=== PATIENT | male | born 1940 ===

== ENCOUNTER 2017-06-01 11:46 | Emergency (ER) | payer MEDICARE, MEDICAID ==
--- NOTE | 2017-06-01 12:00 | ED PDOC ---
Arrival/HPI - General Chief Complaint: Weakness/Neurological Deficit Time Seen by Provider: 06/01/17 11:53 Historian: Family (Son), EMS EM Caveat: Altered Mental Status - Critical Care Critical Care Minutes: 75 minutes - History of Present Illness Time/Duration: Prior to Arrival Symptom Onset: Sudden Symptom Course: Unchanged Severity Level: Severe Associated Symptoms (Text): 06/01/17 11:58 Son reports that the patient got up this morning and was feeling fine. He was having coffee and breakfast with his at 11 AM today. He got up to use the bathroom and did not return from the bathroom for 20 or 25 minutes. The then went to find him and found him on the floor in the bathroom with it dense left hemiparesis. Patient was initially seen on the stretcher and a code stroke was called and he was brought emergently to CT scan. The son reports 3 medications 1 for hypertension 1 for diabetes and one for hyperlipidemia. The patient is able to follow commands. I spoke with the stroke neurologist , and she is coming to the emergency department to evaluate the patient. Past Medical History - Infectious Disease Hx of Infectious Diseases: None - Endocrine/Metabolic Hx Diabetes Mellitus Type 2: Yes - Genitourinary/Gynecological Hx Bladder Stone: Yes - Psychiatric Hx Psychophysiologic Disorder: No Hx Anxiety: No Hx Bipolar Disorder: No Hx Depression: No Hx Emotional Abuse: No Hx Hallucinations: No Hx Panic Disorder: No Hx Post Traumatic Stress Disorder: No Hx Psychosis: No Hx Physical Abuse: No Hx Schizophrenia: No Hx Sexual Abuse: No Hx Substance Use: No - Surgical History Other/Comment: Bladder surgery - Anesthesia Hx Anesthesia: Yes Hx Anesthesia Reactions: No Hx Malignant Hyperthermia: No Family/Social History - Physician Review Nursing Documentation Reviewed: Yes Family/Social History: Unknown Family HX Smoking Status: Never Smoked Hx Alcohol Use: No Hx Substance Use: No Allergies/Home Meds Allergies/Adverse Reactions: Allergies No Known Allergies Allergy (Verified 06/01/17 12:03) Home Medications: Home Meds Medication Instructions Recorded Confirmed Ibuprofen [Advil] 200 mg PO PRN PRN 06/20/15 06/01/17 metFORMIN [glucOPHAGE] 1,000 mg PO BID 06/20/15 06/01/17 Aspirin [Ecotrin] 81 mg PO DAILY 06/01/17 06/01/17 Atorvastatin [Lipitor] 40 mg PO DAILY 06/01/17 06/01/17 Canagliflozin [Invokana] 100 mg PO DAILY 06/01/17 06/01/17 Enalapril Maleate [Vasotec] 10 mg PO DAILY 06/01/17 06/01/17 Pantoprazole [Protonix EC Tab] 40 mg PO DAILY 06/01/17 06/01/17 Ranolazine [Ranexa] 500 mg PO DAILY 06/01/17 06/01/17 Ticagrelor [Brilinta] 90 mg PO DAILY 06/01/17 06/01/17 Review of Systems - Review of Systems Systems not reviewed;Unavailable: Altered Mental Status Physical Exam Vital Signs Temp Pulse Resp BP Pulse Ox 06/01/17 15:48 98 H 18 161/96 H 98 06/01/17 15:33 101 H 18 183/99 H 98 06/01/17 15:18 89 18 188/101 H 98 06/01/17 15:03 97 H 18 176/111 H 98 06/01/17 14:48 95 H 18 164/120 H 98 06/01/17 14:33 85 18 178/110 H 98 06/01/17 14:18 88 18 173/116 H 96 06/01/17 14:03 74 18 178/111 H 98 06/01/17 13:48 78 18 181/97 H 95 06/01/17 13:46 87 171/124 H 06/01/17 13:38 79 18 171/124 H 98 06/01/17 12:52 102 H 155/80 H 06/01/17 12:47 97 H 18 155/80 H 96 06/01/17 11:56 97.5 F L 104 H 19 161/122 H 97 Temperature: Afebrile Blood Pressure: Hypertensive Pulse: Tachycardic Respiratory Rate: Normal Appearance: Positive for: Non-Toxic, Comfortable Pain Distress: None Mental Status: Positive for: Lethargic Finger Stick Blood Glucose: 130 - Systems Exam Head: Present: Atraumatic, Normocephalic Pupils: Present: PERRL Extroacular Muscles: Present: EOMI Conjunctiva: Present: Normal Mouth: Present: Moist Mucous Membranes Pharnyx: No: ERYTHEMA, EXUDATE, TONSILS ENLARGED Respiratory/Chest: Present: Clear to Auscultation, Good Air Exchange, Decreased Breath Sounds. No: Respiratory Distress, Accessory Muscle Use Cardiovascular: Present: Irregular Rhythm, Tachycardic Abdomen: Present: Normal Bowel Sounds. No: Tenderness, Distention, Peritoneal Signs, Rebound, Guarding Upper Extremity: Present: Normal Inspection. No: Cyanosis, Edema Lower Extremity: Present: Normal Inspection. No: Edema Neurological: Present: Other (Dense left upper and lower hemiparesis). No: Speech Normal, Motor Func Grossly Intact, Normal Sensory Function, Normal Cerebellar Funct, Norm Deep Tendon Reflexes, Gait Normal, Memory Normal Skin: Present: Warm, Dry, Normal Color. No: Rashes Medical Decision Making ED Course and Treatment: 06/01/17 12:14 I spoke with the radiologist Dr. Davis who read the code stroke CT scan as no acute findings only old changes. 06/01/17 12:15 EKG shows atrial fibrillation rate approximately [address] depressions laterally and in no acute changes. 06/01/17 12:15 Son reports that approximately one year ago the patient had a TIA with no subsequent sequela. He was seen at another hospital at that time. He was started on aspirin and brilinta by a shelter monitor at that time. 06/01/17 12:45 Call placed to the neuro interventionalist, waiting for to arrive. 06/01/17 12:57 called and reviewed the CT scan. She is on her way from [facility]. She does not want TPA secondary to the patient's brilinta and aspirin. 06/01/17 13:31 called again and will be here in 5 minutes. She is now requesting that the patient be prepped for TPA. 06/01/17 13:41 is here now and is requesting TPA be mixed. 06/01/17 14:09 Discussed with , who accepts to ICU. 06/01/17 14:12 Hospitalist accepts admission 06/01/17 14:56 Spoke with the neuro interventionalist [phone], who will review scan and CTA and call back 06/01/17 15:28 called back after reviewing the patient's CT scan and CTA and wants the patient transferred to [facility] [address] [id number]. [phone]. 06/01/17 15:36 I spoke with Otoniel at [facility] ambulance service and with [phone] at [facility] ED. Patient will go to the emergency department and from the emergency department to their IR suite. - Lab Interpretations Lab Results: 06/01/17 12:05 06/01/17 12:05 Lab Results 06/01/17 15:05: Blood Type Confirm AB POSITIVE 06/01/17 12:05: Sodium 139, Potassium 4.2, Chloride 102, Carbon Dioxide 25, Anion Gap 17, BUN 20, Creatinine 0.9, Est GFR ( Amer) > 60, Est GFR (Non- Af Amer) > 60, Random Glucose 163 H, Calcium 10.2, Total Bilirubin 0.6, AST 31, ALT 27, Alkaline Phosphatase 62, Troponin I < 0.01, Total Protein 8.4 H, Albumin 4.8, Globulin 3.6, Albumin/Globulin Ratio 1.3, Triglycerides 161 H, Cholesterol 176, LDL Cholesterol Direct 91, HDL Cholesterol 61 H 06/01/17 12:05: PT 10.8, INR 0.94, APTT 29.5 06/01/17 12:05: WBC 7.6, RBC 4.46, Hgb 13.5 L, Hct 40.5 L, MCV 90.8, MCH 30.3, MCHC 33.3, RDW 13.2, Plt Count 211, MPV 10.9, Gran % 48.9 L, Lymph % (Auto) 37.9 H, [place] % (Auto) 8.6 H, Eos % (Auto) 4.3, Baso % (Auto) 0.3, Gran # 3.72, Lymph # 2.9, [place] # 0.7 H, Eos # 0.3, Baso # 0.02 06/01/17 12:00: Blood Type AB POSITIVE, Antibody Screen Negative, BBK History Checked No verified bt - RAD Interpretation Radiology Orders: 06/01/17 11:49 HEAD W/O (CODE STROKE) [CT] Stat 06/01/17 11:56 CHEST PORTABLE [RAD] Stat 06/01/17 12:43 ANGIOGRAPHY HEAD [CT] Stat 06/02/17 05:00 MRA HEAD WITHOUT CONTRAST [MRI] Routine 06/02/17 06:00 BRAIN WITHOUT CONTRAST [MRI] Routine - Medication Orders Current Medication Orders: Sodium Chloride (Sodium Chloride 0.9%) 1,000 mls @ 0 mls/hr IV .Q0M RUBÉN PRN Reason: Per Protocol Insulin Human Lispro (Humalog Med) 0 units SC ACHS RUBÉN PRN Reason: Protocol Labetalol HCl (Trandate) 10 mg IV Q6 PRN PRN Reason: Other Discontinued Medications Alteplase, Recombinant (Activase 100 Mg Inj) 5.5 mg IV ONCE ONE PRN Reason: Protocol Stop: 06/01/17 13:52 Last Admin: 06/01/17 14:13 Dose: 5.5 mg eMAR Start Stop Document 06/01/17 14:13 EWO (Rec: 06/01/17 14:13 [id number]) Intravenous Solution Start Date 06/01/17 Start Time 14:04 End Date 06/01/17 End time 14:06 Total Infusion Time 2 Alteplase, Recombinant (Activase 100 Mg Inj) 49.3 mg IV ONCE ONE PRN Reason: Protocol Stop: 06/01/17 14:01 Last Admin: 06/01/17 14:08 Dose: 49.3 mg eMAR Start Stop Document 06/01/17 14:08 EWO (Rec: 06/01/17 14:49 [id number]) Intravenous Solution Start Date 06/01/17 Start Time 14:08 End Date 06/01/17 End time 15:08 Total Infusion Time 60 Metoprolol Tartrate (Lopressor) 5 mg IVP STAT STA Stop: 06/01/17 12:45 Last Admin: 06/01/17 12:52 Dose: 5 mg IVP Administration Document 06/01/17 12:52 EW (Rec: 06/01/17 12:53 [id number]) Charges for Administration # of IVP Administrations 1 MAR Pulse and Blood Pressure Document 06/01/17 12:52 EW (Rec: 06/01/17 12:53 [id number]) Pulse Pulse Rate (60-90 beats/min) 102 Blood Pressure Blood Pressure (100/60-150/90 mm Hg) 155/80 Metoprolol Tartrate (Lopressor) 5 mg IVP ONCE ONE Stop: 06/01/17 13:44 Last Admin: 06/01/17 13:46 Dose: 5 mg IVP Administration Document 06/01/17 13:46 [facility] (Rec: 06/01/17 13:46 [id number]) Charges for Administration # of IVP Administrations 2 MAR Pulse and Blood Pressure Document 06/01/17 13:46 [facility] (Rec: 06/01/17 13:46 [facility]-[id number]) Pulse Pulse Rate (60-90 beats/min) 87 Blood Pressure Blood Pressure (100/60-150/90 mm Hg) 171/124 NIHSS Scale ([place]) Time Performed: 12:09 - How Severe is the Stoke Baseline Level of Consciousness: 1=Drowsy LOC to Questions: 1=One correct LOC to commands: 1=Obeys one correctly Best Gaze: 2=Forced deviation Visual: 0=No visual loss Facial: 1=Minor asymmetry Motor Arm - Left: 4=No movement Motor Arm - Right: 0=No drift Motor Leg - Left: 4=No movement Motor Leg - Right: 0=No drift Limb Ataxia: 0=Absent Sensory: 1=Mild to moderate loss Best Language: 1=Mild to moderate aphasia Dysarthia: 1=Mild to moderate slurring Extinction & Inattention (Neglect): 1=Partial neglect (mild william-attention) Score: 18 Risk Level: Mod/Sev Stroke Risk Disposition/Present on Arrival - Present on Arrival Any Indicators Present on Arrival: No History of DVT/PE: No History of Uncontrolled Diabetes: No Urinary Catheter: No History of Decub. Ulcer: No History Surgical Site Infection Following: None - Disposition Have Diagnosis and Disposition been Completed?: Yes Diagnosis: Cerebrovascular accident, Atrial fibrillation, Hypertension Disposition: Trans to Other Acute Care Hosp Disposition Time: 14:12 Patient Plan: Transfer To Condition: CRITICAL Referrals: Vincenzo Henriquez [Primary Care Provider] - Follow up with primary
[2017-06-01 12:10] VITALS: BMI 18.4
--- NOTE | 2017-06-01 12:11 | CT ---
PROCEDURE: CT HEAD WITHOUT CONTRAST. HISTORY: weakness COMPARISON: None available. TECHNIQUE: Axial computed tomography images were obtained through the head/brain without intravenous contrast. Radiation dose: Total exam DLP = 942 mGy-cm. This CT exam was performed using one or more of the following dose reduction techniques: Automated exposure control, adjustment of the mA and/or kV according to patient size, and/or use of iterative reconstruction technique. FINDINGS: HEMORRHAGE: No intracranial hemorrhage. BRAIN: No mass effect or edema. Chronic infarcts with well-defined encephalomalacia can be seen in the right occipital lobe and in the left posterior frontal lobe. No evidence of acute infarct or hemorrhage. Findings were discussed with Dr. Suarez at 12:05 p.m. VENTRICLES: Unremarkable. No hydrocephalus. CALVARIUM: Unremarkable. PARANASAL SINUSES: Unremarkable as visualized. No significant inflammatory changes. MASTOID AIR CELLS: Unremarkable as visualized. No inflammatory changes. OTHER FINDINGS: None. IMPRESSION: No acute intracranial findings
[2017-06-01 12:22] LABS: BASO # 0.02 K/mm3 (0.0-2.0); BASO % 0.3 % (0.0-3.0); EOS # 0.3 (0.0-0.7); EOS % 4.3 % (1.5-5.0); GRAN # 3.72 (1.4-6.5); GRAN % 48.9 % (50.0-68.0); HEMOGLOBIN 13.5 g/dL (14.0-18.0); LYMPH # 2.9 (1.2-3.4); LYMPH % 37.9 % (22.0-35.0); MEAN CELL VOLUME 90.8 fl (80.0-105.0); MEAN CORPUSCULAR HEMOGLOBIN 30.3 pg (25.0-35.0); MEAN CORPUSCULAR HGB CONC 33.3 g/dl (31.0-37.0); MEAN PLATELET VOLUME 10.9 fl (7.0-11.0); MONO # 0.7 (0.1-0.6); MONO % 8.6 % (1.0-6.0); RBC 4.46 10^6/uL (3.5-6.1); RED CELL DISTRIBUTION WIDTH 13.2 % (11.5-14.5); WHITE BLOOD COUNT 7.6 10^3/ul (4.5-11.0)
[2017-06-01 12:30] LABS: INR 0.94 (0.93-1.08); PARTIAL THROMBOPLASTIN TIME 29.5 Seconds (25.1-36.5); PROTHROMBIN TIME 10.8 SECONDS (9.4-12.5)
--- NOTE | 2017-06-01 12:36 | RAD ---
HISTORY: cva COMPARISON: No prior. FINDINGS: LUNGS: No active pulmonary disease. PLEURA: No significant pleural effusion identified, no pneumothorax apparent. CARDIOVASCULAR: Mild cardiomegaly OSSEOUS STRUCTURES: No significant abnormalities. VISUALIZED UPPER ABDOMEN: Normal. OTHER FINDINGS: None. IMPRESSION: No active disease.
[2017-06-01 12:40] LABS: LDL CHOLESTEROL 91 mg/dL (0-129)
[2017-06-01 12:42] LABS: TROPONIN I < 0.01 ng/mL
[2017-06-01 12:43] LABS: ALB/GLOB RATIO 1.3 (1.1-1.8); ALBUMIN 4.8 g/dL (3.0-4.8); ALT/SGPT 27 U/L (7-56); AST/SGOT 31 U/L (17-59); BLOOD UREA NITROGEN 20 mg/dL (7-21); CALCIUM 10.2 mg/dL (8.4-10.5); GFR AFRICAN-AMERICAN > 60; GFR NON-AFRICAN AMERICAN > 60; HDL CHOLESTEROL 61 mg/dL (29-60)
[2017-06-01] MEDS ORDERED: Metoprolol 1 mg/ml Inj IVP STA (12:44)
[2017-06-01 12:47] VITALS: RESP 18
[2017-06-01] MEDS ORDERED: Iodixanol 320 MG/ML 100 ML BOTTLE IV ONE (13:08)
[2017-06-01] MEDS ORDERED: Metoprolol 1 mg/ml Inj IVP ONE (13:43)
[2017-06-01] MEDS ORDERED: Sodium Chloride 0.9% 1,000 ML IV SCH (14:00)
--- NOTE | 2017-06-01 14:18 | CT ---
PROCEDURE: CT Angiography of the Brain. HISTORY: cva COMPARISON: None available. TECHNIQUE: CT angiography of the intracranial arteries was performed. Coronal and sagittal maximum intensity projection reformated images were generated. This CT exam was performed using one or more of the following dose reduction techniques: Automated exposure control, adjustment of the mA and/or kV according to patient size, and/or use of iterative reconstruction technique. Intravenous contrast dose: 100 cc of Visipaque Radiation dose: Total exam DLP = 141 mGy-cm. 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 [place] collaterals supplied the anterior and middle cerebral arteries. ANTERIOR CEREBRAL ARTERIES: Unremarkable. A1 and A2 segments are widely patent. Smaller distal branches unremarkable, as visualized. MIDDLE CEREBRAL ARTERIES: Unremarkable. M1 and M2 segments are widely patent. Perisylvian branches grossly symmetric. POSTERIOR CIRCULATION: Basilar Artery: Unremarkable. Distal Vertebral Arteries: Unremarkable. Posterior Cerebral Arteries: Unremarkable. Posterior Inferior Cerebellar Arteries: Unremarkable. ANEURYSM/ VASCULAR MALFORMATIONS: None. OTHER FINDINGS: None. 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 [place] collaterals supplly the anterior and middle cerebral arteries.
--- NOTE | 2017-06-01 14:20 | CP.PCM.HP ---
<Heladio Tubbs - Last Filed: 06/01/17 14:38> Meds Allergies/Adverse Reactions: Allergies Allergy/AdvReac Type Severity Reaction Status Date / Time No Known Allergies Allergy Verified 06/01/17 12:03 Results - Vital Signs Recent Vital Signs: Last Vital Signs Temp 97.5 F L 06/01/17 11:56 Pulse 88 06/01/17 14:33 Resp 18 06/01/17 14:33 BP 178/110 H 06/01/17 14:33 Pulse Ox 98 06/01/17 14:33 - Labs Result Diagrams: 06/01/17 12:05 06/01/17 12:05 Labs: Laboratory Results - last 24 hr 06/01/17 06/01/17 06/01/17 12:00 12:05 12:05 WBC 7.6 RBC 4.46 Hgb 13.5 L Hct 40.5 L MCV 90.8 MCH 30.3 MCHC 33.3 RDW 13.2 Plt Count 211 MPV 10.9 Gran % 48.9 L Lymph % (Auto) 37.9 H [place] % (Auto) 8.6 H Eos % (Auto) 4.3 Baso % (Auto) 0.3 Gran # 3.72 Lymph # 2.9 [place] # 0.7 H Eos # 0.3 Baso # 0.02 PT 10.8 INR 0.94 APTT 29.5 Sodium Potassium Chloride Carbon Dioxide Anion Gap BUN Creatinine Est GFR ( Amer) Est GFR (Non-Af Amer) Random Glucose Calcium Total Bilirubin AST ALT Alkaline Phosphatase Troponin I Total Protein Albumin Globulin Albumin/Globulin Ratio Triglycerides Cholesterol LDL Cholesterol Direct HDL Cholesterol BBK History Checked No verified bt 06/01/17 12:05 WBC RBC Hgb Hct MCV MCH MCHC RDW Plt Count MPV Gran % Lymph % (Auto) [place] % (Auto) Eos % (Auto) Baso % (Auto) Gran # Lymph # [place] # Eos # Baso # PT INR APTT Sodium 139 Potassium 4.2 Chloride 102 Carbon Dioxide 25 Anion Gap 17 BUN 20 Creatinine 0.9 Est GFR ( Amer) > 60 Est GFR (Non-Af Amer) > 60 Random Glucose 163 H Calcium 10.2 Total Bilirubin 0.6 AST 31 ALT 27 Alkaline Phosphatase 62 Troponin I < 0.01 Total Protein 8.4 H Albumin 4.8 Globulin 3.6 Albumin/Globulin Ratio 1.3 Triglycerides 161 H Cholesterol 176 LDL Cholesterol Direct 91 HDL Cholesterol 61 H BBK History Checked <Allen Lieberman - Last Filed: 06/01/17 17:42> History of Present Illness - History of Present Illness History of Present Illness: 77 year old male with past medical history of TIA, HLD, HTN, DM, cataracts presents to the ED with AMS after being found on the floor of his bathroom around 11:30 this morning by family. History was obtained bedside from the patient's son. The son stated the patient was having coffee with his around 11 am and proceeded to go to the rest room. After not returning fro about 25 min, the discovered the patient on the floor. Patient was awake and speaking incomprehensibly. He was able to say eventually that he was sitting on the toilet prior to being on the floor. Patient did not admit of any CP, palpitations, shortness of breath to his family. He also did not have any unusual feelings or symptoms before the incident or in the past couple of days. ROS was currently difficult to obtain due to patients AMS and lethargy. He answers some direct questions but is confused. wire wheeler: Wilbert Rich PMH: TIA a year ago without any residual weakness, HLD, HTN, DM, cataracts PSH: Bladder stone removal 4 years ago Allergies: NKDA Social: sporadic tobacco use in the 20s, no alcohol or illicit drug use Family History: nothing significant Medications: See MAR Present on Admission - Present on Admission Any Indicators Present on Admission: No Review of Systems - Review of Systems Review of Systems: Unable to obtain a complete ROS due to lethargy/AMS Past Patient History - Infectious Disease Hx of Infectious Diseases: None - Past Social History Smoking Status: Never Smoked - CARDIAC Hx Cardiac Disorders: Yes Hx Heart Attack: Yes Hx Hypercholesterolemia: Yes Hx Hypertension: Yes - PULMONARY Hx Respiratory Disorders: No - NEUROLOGICAL Hx Neurological Disorder: No - HEENT Hx HEENT Problems: Yes Hx Cataracts: Yes - RENAL Hx Chronic Kidney Disease: No - ENDOCRINE/METABOLIC Hx Diabetes Mellitus Type 2: Yes - HEMATOLOGICAL/ONCOLOGICAL Hx Blood Disorders: No - INTEGUMENTARY Hx Dermatological Problems: No - MUSCULOSKELETAL/RHEUMATOLOGICAL Hx Musculoskeletal Disorders: Yes Hx Falls: Yes - GASTROINTESTINAL Hx Gastrointestinal Disorders: No - GENITOURINARY/GYNECOLOGICAL Hx Bladder Stone: Yes - PSYCHIATRIC Hx Psychophysiologic Disorder: No Hx Anxiety: No Hx Bipolar Disorder: No Hx Depression: No Hx Emotional Abuse: No Hx Hallucinations: No Hx Panic Symptoms: No Hx Post Traumatic Stress Disorder: No Hx Psychosis: No Hx Physical Abuse: No Hx Schizophrenia: No Hx Sexual Abuse: No Hx Substance Use: No - SURGICAL HISTORY Other/Comment: Bladder surgery - ANESTHESIA Hx Anesthesia: Yes Hx Anesthesia Reactions: No Hx Malignant Hyperthermia: No Physical Exam - Constitutional Appears: No Acute Distress - Head Exam Head Exam: ATRAUMATIC, NORMAL INSPECTION, NORMOCEPHALIC - Eye Exam Eye Exam: EOMI, Normal appearance, PERRL - ENT Exam ENT Exam: Mucous Membranes Moist, Normal Exam - Respiratory Exam Respiratory Exam: Clear to Auscultation Bilateral, NORMAL BREATHING PATTERN - Cardiovascular Exam Cardiovascular Exam: Irregular Rhythm - GI/Abdominal Exam GI & Abdominal Exam: Normal Bowel Sounds. absent: Tenderness - Expanded Upper Extremities Exam Left Neurosensory exam: absent: 2-poit discrimination - Neurological Exam Neurological exam: Altered Additional comments: Patient only oriented to self, left sided neglect, left upper and lower arm paralysis patient unable to perform purposeful movements with left arm , or move left leg patient making some unpurposeful movements with left arm - Expanded Neurological Exam Expanded Patient oriented to: person Cranial nerves: EOM's Intact: Normal Sensory exam: Lower Extremity 2 Point Discrimination: Abnormal Left, Lower Extremity Light Touch: Abnormal Left, Lower Extremity Pin Prick: Abnormal Left, Lower Extremity Temperature: Abnormal Left, Upper Extremity 2 Point Discrimination: Normal, Upper Extremity Light Touch: Normal, Upper Extremity Pin Prick: Normal, Upper Extremity Temperature: Normal Neuro motor strength exam: Left Upper Extremity: 0, Right Upper Extremity: 5, Left Lower Extremity: 0, Right Lower Extremity: 5 - Skin Skin Exam: Normal Color Results - Vital Signs Recent Vital Signs: Last Vital Signs Temp 97.5 F L 06/01/17 11:56 Pulse 74 06/01/17 14:03 Resp 18 06/01/17 14:03 BP 178/111 H 06/01/17 14:03 Pulse Ox 98 06/01/17 14:03 - Labs Result Diagrams: 06/01/17 12:05 06/01/17 12:05 Labs: Laboratory Results - last 24 hr 06/01/17 06/01/17 06/01/17 12:05 12:05 12:05 WBC 7.6 RBC 4.46 Hgb 13.5 L Hct 40.5 L MCV 90.8 MCH 30.3 MCHC 33.3 RDW 13.2 Plt Count 211 MPV 10.9 Gran % 48.9 L Lymph % (Auto) 37.9 H [place] % (Auto) 8.6 H Eos % (Auto) 4.3 Baso % (Auto) 0.3 Gran # 3.72 Lymph # 2.9 [place] # 0.7 H Eos # 0.3 Baso # 0.02 PT 10.8 INR 0.94 APTT 29.5 Sodium 139 Potassium 4.2 Chloride 102 Carbon Dioxide 25 Anion Gap 17 BUN 20 Creatinine 0.9 Est GFR ( Amer) > 60 Est GFR (Non-Af Amer) > 60 Random Glucose 163 H Calcium 10.2 Total Bilirubin 0.6 AST 31 ALT 27 Alkaline Phosphatase 62 Troponin I < 0.01 Total Protein 8.4 H Albumin 4.8 Globulin 3.6 Albumin/Globulin Ratio 1.3 Triglycerides 161 H Cholesterol 176 LDL Cholesterol Direct 91 HDL Cholesterol 61 H Assessment & Plan - Assessment and Plan (Free Text) Assessment: 77 year old male with past medical history of TIA, HLD, HTN, DM, cataracts presents to the ED with AMS after being found on the floor of his bathroom around 11:30 this morning by family. Code stroke was called, patient given TPA. Plan: 1. Possible Stroke-AMS -EKG ordered and obtained, A Fib HR: 113 , pending official read -CBC and CMP ordered and ontained within accepted range -INR: .94 -Code stroke called -NIHSS: 15 -CT head: no acute changes -CTA: complete stenosis of left internal carotid artery -Neurology Consulted Dr. Tubbs: TPA administered in the ED at 2:04 pushed for 2 minutes -patient alert to self only -seizure precautions -aspiration precautions -neuro checks -fall precautions -NPO -speech and swallow evaluation -MRI of Brain in AM -MRA in the AM -Echo ordered pending -repeat head CT in evening, will follow up -repeat CT head for acute change in mental stat -fluids @100 -allowing permissive HTN up to 180 systolic and 105 diastolic -Labetolol 10 Q6 PRN if SBP>180, Diastolic >105 -admit to ICU -PT evlauation -A1C Pending 2. DM -hold oral hypogylcemics -ISS medium with ACHS 3. HTN -holding home HTN medications 4. HLD -holding home lipitor
--- NOTE | 2017-06-01 15:04 | CP.PCM.CON ---
History of Present Illness - History of Present Illness History of Present Illness: 77 yr old male who presents with acute onset dense left hemiplegia. The patient last saw him well at 11 am, when he was having tea with his aunt, and then at 11 20 am he was found on the ground, and was plegic on his left side. There was no seizure at onset of stroke. Patient has a history of a stroke about 2 years ago, where he was found on the ground. At that time, the deficits that he sustained are not clear. He was started on newer antiplatelet agent at this time, and has continued on these agents since then. No history of cardiac cath, but does have history of atrial fibrillation. NIh stroke scale performed at 1:45 pm: 15 points TPA bolus pushed for 2 minutes at 2:04 pm. PMH/PSH: History of ischemic stroke, NO dm, hypertension. history of kidney stone. FH/SH: Lives with , no tobacco, no etoh. Has 7 children. 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 All: nkda On exam: awake, alert, but has left sided neglect. EOMI. VF : show left superior and inferior complete field cut. Left sided facial weakness. Speech: patient can name with mild dysarthria. Can repeat. Remote and recent memory are poor. Clock drawing shows left sided neglect. Apraxia present, but can right and read. There is no alexia or agraphia. Motor: no movement in left upper or left lower limb. Right side: 5/5 ul and ll. sensory: intact, ft, pin, postion and vibration sense right side, left side all modalities are absent. Cerebellar: f/n no dysmetria right side, left side plegic. DTR: +3 right ul, and ll bl. Toes: downgoing bl. Gait : not tested. Review of Systems - Review of Systems Systems not reviewed;Unavailable: Altered Mental Status, Language Barrier - Constitutional Constitutional: As Per HPI - Neurological Neurological: Abnormal Gait, Confusion, Focal Weakness, Loss of Vision, Sensory Deficit (left sided neglect. EOMI. Patient completely neglects the left side on exam. Left sided plegia, arm and leg. Left sided facial droop. Pupils 3mm-2mm with light. ) Past Patient History - Infectious Disease Hx of Infectious Diseases: None - Past Social History Smoking Status: Never Smoked - CARDIAC Hx Cardiac Disorders: Yes Hx Heart Attack: Yes Hx Hypercholesterolemia: Yes Hx Hypertension: Yes - PULMONARY Hx Respiratory Disorders: No - NEUROLOGICAL Hx Neurological Disorder: No - HEENT Hx HEENT Problems: Yes Hx Cataracts: Yes - RENAL Hx Chronic Kidney Disease: No - ENDOCRINE/METABOLIC Hx Diabetes Mellitus Type 2: Yes - HEMATOLOGICAL/ONCOLOGICAL Hx Blood Disorders: No - INTEGUMENTARY Hx Dermatological Problems: No - MUSCULOSKELETAL/RHEUMATOLOGICAL Hx Musculoskeletal Disorders: Yes Hx Falls: Yes - GASTROINTESTINAL Hx Gastrointestinal Disorders: No - GENITOURINARY/GYNECOLOGICAL Hx Bladder Stone: Yes - PSYCHIATRIC Hx Psychophysiologic Disorder: No Hx Anxiety: No Hx Bipolar Disorder: No Hx Depression: No Hx Emotional Abuse: No Hx Hallucinations: No Hx Panic Symptoms: No Hx Post Traumatic Stress Disorder: No Hx Psychosis: No Hx Physical Abuse: No Hx Schizophrenia: No Hx Sexual Abuse: No Hx Substance Use: No - SURGICAL HISTORY Other/Comment: Bladder surgery - ANESTHESIA Hx Anesthesia: Yes Hx Anesthesia Reactions: No Hx Malignant Hyperthermia: No Meds Allergies/Adverse Reactions: Allergies Allergy/AdvReac Type Severity Reaction Status Date / Time No Known Allergies Allergy Verified 06/01/17 12:03 Results - Vital Signs Recent Vital Signs: Last Vital Signs Temp 97.5 F L 06/01/17 11:56 Pulse 87 06/01/17 13:46 Resp 18 06/01/17 13:38 BP 171/124 H 06/01/17 13:46 Pulse Ox 98 06/01/17 13:38 - Labs Result Diagrams: 06/01/17 12:05 06/01/17 12:05 Labs: Laboratory Results - last 24 hr 06/01/17 06/01/17 06/01/17 12:05 12:05 12:05 WBC 7.6 RBC 4.46 Hgb 13.5 L Hct 40.5 L MCV 90.8 MCH 30.3 MCHC 33.3 RDW 13.2 Plt Count 211 MPV 10.9 Gran % 48.9 L Lymph % (Auto) 37.9 H Kerr % (Auto) 8.6 H Eos % (Auto) 4.3 Baso % (Auto) 0.3 Gran # 3.72 Lymph # 2.9 Kerr # 0.7 H Eos # 0.3 Baso # 0.02 PT 10.8 INR 0.94 APTT 29.5 Sodium 139 Potassium 4.2 Chloride 102 Carbon Dioxide 25 Anion Gap 17 BUN 20 Creatinine 0.9 Est GFR ( Amer) > 60 Est GFR (Non-Af Amer) > 60 Random Glucose 163 H Calcium 10.2 Total Bilirubin 0.6 AST 31 ALT 27 Alkaline Phosphatase 62 Troponin I < 0.01 Total Protein 8.4 H Albumin 4.8 Globulin 3.6 Albumin/Globulin Ratio 1.3 Triglycerides 161 H Cholesterol 176 LDL Cholesterol Direct 91 HDL Cholesterol 61 H Assessment & Plan - Assessment and Plan (Free Text) Assessment: 77 yr old right handed male who appears to have had a right ischemic MCA stroke, M1, M2, M3 distribution. He was given TPA bolus and nowon drip according to stroke protocol. Within 20 minutes, his deficits have improved minimally after TPA, specifically with semipurposeful right arm movement. Plan: 1. Admit to ICU 2 Neuro checks q 1 hour 3. Continue tpa drip, and repeat CT head tonight 4. PLease control bp if over 190-200/100 5. IV fluids with normal saline 100 cc['s per hour 6. Dysphagia evaluation, speech and physical therapy in am 7. DVT prophylaxis with sq heparin/venodynes 8. PLease call or perform repeat CT head for acute change in mental status 9. called re: CTA Thankyou for this interesting consult. Dr.Gautami Gilda MD,. DPN
[2017-06-01] MEDS ORDERED: Labetalol 5 mg/ml Inj 20ML IV PRN ×2 (15:37→16:42)
[2017-06-01] MEDS ORDERED: Labetalol 5 mg/ml Inj 20ML ONE (16:17)
[2017-06-01 16:26] VITALS: TEMP 97.8
[2017-06-01] MEDS ORDERED: Insulin Lispro (humaLOG) MEDIUM Coverage SC SCH (16:30)
[2017-06-01 16:31] VITALS: BP 155/91; PULSE 91; O2SAT 97
--- NOTE | 2017-06-01 20:42 | CARD ---
APPROVED REPORT EKG Measurement Heart [id number] <Conclusion> Atrial fibrillation with rapid ventricular response Minimal voltage criteria for LVH, may be normal variant Possible Inferior infarct, age undetermined ST & T wave abnormality, consider lateral ischemia or digitalis effect Abnormal ECG
== END 2017-06-01 16:40 | disposition short-term general hospital (02) ==
LOC: ED 11:46 → UNDOADMIN 14:10 → ERH 14:10 → ED 16:40
DX: I63.8 Other cerebral infarction (principal); I48.91 Unspecified atrial fibrillation; I10 Essential (primary) hypertension; E11.9 Type 2 diabetes mellitus without complications; E78.5 Hyperlipidemia, unspecified; Z92.82 Status post administration of tPA (rtPA) in a different facility within the last 24 hours prior to admission to current facility
CPT/HCPCS: 70450; 70496; 71045; 80053; 80061; 83036; 84484; 85025; 85610; 85730; 86850; 86900; 93005; 96365; 96375; 96376; 99285; J2997; Q9967